=== PATIENT | female | born 1955 | race Caucasian/White ===

== ENCOUNTER → 2016-04-04 | Outpatient (REF) | payer MEDICARE, MEDICAID | LOC: LAB 18:20 | PROVIDERS: ATTEND Internal Medicine | DX: N39.0 Urinary tract infection, site not specified (principal) | CPT/HCPCS: 87077; 87088; 87186 ==

== ENCOUNTER → 2016-06-22 | Outpatient (CLI) | payer MEDICARE, MEDICAID ==
[~2016-06-22] MED LIST: ACHYD1T PO; AMIT50TA3 PO; ASPI-586 PO; BISO1TAB6 PO; CEFD300C PO; CLON1TAB3 PO; CTLP20T PO; ESTR0.5T PO; FNT50TD TD; GBPN400C PO; GLYC1SUP RC; HALO0.5T PO; HYDR-3708 PO; HYDR-3811 PO; HYDR4TAB PO; LEVO500T16 PO; LORA1TAB PO; LVF500T PO; LVT.025T PO; OMEP10CA4 PO; OMEP20TA PO; ONDN4T PO; OXYC10TA74 PO; OXYC1TAB12 PO; POTA10CA2 PO; SENN8.6T6 PO; VERA120T78 PO; VERA80TA2 PO
--- NOTE | 2016-06-22 13:15 | Diagnostic Imaging Report ---
PROCEDURE: CT lumbar spine without contrast. TECHNIQUE: Multiple contiguous axial images were obtained through the lumbar spine without the use of intravenous contrast. Sagittal and coronal reformations were then performed. INDICATION: Chronic back pain. FINDINGS: Sagittal and coronal reformatted images show good alignment of vertebral bodies. The body height is well maintained. Disc spaces are well-preserved. Facets are in good alignment without evidence of pars defects. There is no bony spinal stenosis. There is mild broad-based disc bulge noted at all levels of the lumbar discs. There are no focal disc herniations. No significant encroachment is seen upon the neural foramen. There is sclerosis along the superior endplate of S1 consistent with chronic disc disease. No significant facet hypertrophy is demonstrated. Aorta is atherosclerotic without evidence of aneurysm. IMPRESSION: Mild diffuse degenerative disc disease with mild broad-based disc bulge at multiple levels. No focal disc herniations or spinal stenosis. Dictated by: Dictated on workstation # [id number]
--- NOTE | 2016-06-23 08:57 | Diagnostic Imaging Report ---
INDICATION: Screening mammogram COMPARISON: Conventional mammograms dated July 17, 2002. The current study was also evaluated with a Computer Aided Detection (CAD) system. FINDINGS: CC and MLO views of the breasts were obtained. There are scattered fibroglandular densities that could obscure a lesion on mammography. There is no dominant mass, suspicious cluster of microcalcifications or other evidence to indicate malignancy. There has been no significant change from prior mammograms. IMPRESSION: Stable mammogram without evidence of malignancy. BI-RADS Category 1: Negative Result letter will be mailed to the patient. Follow-up: Yearly mammogram NOTE: Keep in mind that about 10% of breast cancers will not be identified on mammography. Further evaluation of a palpable mass not seen on mammography should be based on clinical grounds. Dictated by: Dictated on workstation # [id number]
== END ==
LOC: RAD 09:02
PROVIDERS: ATTEND Internal Medicine
DX: Z12.31 Encounter for screening mammogram for malignant neoplasm of breast (principal); M54.5 Low back pain
CPT/HCPCS: 72131; G0202

== ENCOUNTER → 2016-07-14 | Outpatient (CLI) | payer MEDICARE, MEDICAID ==
--- NOTE | 2016-07-14 14:02 | Diagnostic Imaging Report ---
INDICATION: Right thigh pain. COMPARISON: Right knee radiographs performed concurrently and right hip radiographs performed concurrently. TECHNIQUE: AP and lateral views of the right femur were performed. FINDINGS: There is no fracture or discrete focal osseous lesion in the femur. The soft tissues are unremarkable. IMPRESSION: Normal right femur radiographs. Dictated by: Dictated on workstation # [id number]
--- NOTE | 2016-07-14 14:02 | Diagnostic Imaging Report ---
INDICATION: Right leg pain. COMPARISON: Right femur radiographs performed concurrently. TECHNIQUE: AP and lateral views of the right knee. FINDINGS: No fracture or focal osseous lesion. No knee joint effusion. Joint space of the knee is well maintained on nonweightbearing imaging. IMPRESSION: Normal knee radiographs. Dictated by: Dictated on workstation # [id number]
--- NOTE | 2016-07-14 14:04 | Diagnostic Imaging Report ---
INDICATION: Right hip pain. COMPARISON: Right femur radiographs performed concurrently. TECHNIQUE: AP and frog-leg lateral views of the right hip were performed. An AP pelvis was also obtained. FINDINGS: No fracture or traumatic malalignment involving the right hip. There is mild superior joint space narrowing of the right hip which is similar to the left side. This is likely degenerative in nature. Mild coxa profunda is seen bilaterally. Normal femoral head/neck offset on the right. No acetabular retroversion. IMPRESSION: Mild osteoarthritis of the right hip. Dictated by: Dictated on workstation # [id number]
--- NOTE | 2016-07-14 14:13 | Diagnostic Imaging Report ---
INDICATION: Pulmonary nodule. EXAMINATION: PA and lateral chest. FINDINGS: There is a solitary pulmonary nodule in the right lower lobe measuring 11 mm in diameter in the frontal projection. This was present on prior CT dated 08/22/2015 and appears unchanged. It appears stable going back to chest x-ray dated . There are no infiltrates, effusions, or pneumothoraces. Heart size and pulmonary vascularity are normal. IMPRESSION: No acute abnormalities of the chest. Dictated by: Dictated on workstation # [id number]
== END ==
LOC: RAD 12:24
PROVIDERS: ATTEND Internal Medicine
DX: M79.604 Pain in right leg (principal); R91.1 Solitary pulmonary nodule; M25.551 Pain in right hip
CPT/HCPCS: 71020; 73552; 73560